=== PATIENT | female | born 1965 | race Two or more races ===

== ENCOUNTER 2018-07-17 10:17 | Emergency (ER) | payer MEDICAID ==
[~2018-07-17] VITALS: Ht 160 cm; Wt 61.0 kg
[2018-07-17 10:34] VITALS: BP 161/103
== END 2018-07-17 13:27 | disposition left against medical advice (07) ==
LOC: ER 10:27
DX: R51 Headache (principal); Z53.21 Procedure and treatment not carried out due to patient leaving prior to being seen by health care provider